=== PATIENT | female | born 1970 | race African-American/Black ===

== ENCOUNTER 2022-09-28 03:20 | Emergency (ER) | payer OTHER ==
[~2022-09-28] VITALS: Ht 172.7 cm; Wt 65.8 kg
--- NOTE | 2022-09-28 03:30 | NUR ---
DR LUNA HAS SEEN PT FOR EVAL.
--- NOTE | 2022-09-28 03:34 | NUR ---
BIBDAUGHTER C/O BACK PAIN X 1 DAY. HX CHRONIC BACK PAIN. PT A/OX4. TOLERATING R/A WELL WITH NO RESP DISTRESS. CONNECTED PT TO POX AND MONITOR. SAFETY MEASURES IN PLACE.
[2022-09-28] MEDS ORDERED: MORPHINE SULFATE INJ 4 MG/ML DISP.SYRIN ONE (03:48)
[2022-09-28] MEDS ORDERED: ONDANSETRON HCL/PF 4 MG/2 ML VIAL ONE ×2 (03:48→19:47)
[2022-09-28] MEDS ORDERED: ONDANSETRON 4 MG TAB.RAPDIS SL ONE (04:00)
[2022-09-28] MEDS ORDERED: MORPHINE SULFATE INJ 2 MG/ML DISP.SYRIN IM ONE (04:00)
[2022-09-28] MEDS ORDERED: ONDANSETRON HCL/PF - ER 4 MG/2 ML VIAL IV ONE ×3 (04:00→20:00)
--- NOTE | 2022-09-28 04:00 | NUR ---
RAC #18G S/L BLOOD COLLECTED AND SENT TO LAB
--- NOTE | 2022-09-28 04:05 | NUR ---
EMT AT PT'S BEDSIDE FOR EKG
[2022-09-28 04:07] LABS: BASOPHILS # (AUTO) 0.1 K/uL (0.0-0.2); EOSINOPHILS % (AUTO) 10.2 % (0.0-6.0); HEMATOCRIT 39 % (33-45); HEMOGLOBIN 12.7 g/dL (11.5-14.8); LYMPHOCYTES # (AUTO) 1.9 K/uL (0.8-4.8); LYMPHOCYTES % (AUTO) 24.8 % (20.0-44.0); MEAN CORPUSCULAR HGB CONC 33 g/dl (31.0-36.0); MEAN CORPUSCULAR VOLUME 104 fL (82-100); MONOCYTES # (AUTO) 0.9 K/uL (0.1-1.30); PLATELET COUNT (AUTO) 240 K/uL (150-450); RED BLOOD CELL COUNT(AUTO) 3.72 MIL/uL (4.0-5.2); WHITE BLOOD COUNT (AUTO) 7.7 K/uL (4.3-11.0)
[2022-09-28] MEDS ORDERED: CT SWABBABLE VALVE TRANS SET 1 EA INFUS.SET MC ONE (04:09)
[2022-09-28] MEDS ORDERED: IV NS 0.9% 250 ML IV ONE (04:09)
[2022-09-28] MEDS ORDERED: IOHEXOL-350 100 ML VIAL IV ONE (04:09)
[2022-09-28 04:13] LABS: CALCIUM, SERUM 8.8 mg/dL (8.5-10.1); CARBON DIOXIDE 29 mmol/L (21-32); CHLORIDE 102 mmol/L (98-107); CREATININE 0.7 mg/dL (0.6-1.3); GLUCOSE 114 mg/dL (74-106); POTASSIUM 3.3 mmol/L (3.5-5.1); SODIUM SERUM 138 mmol/L (136-145); UREA NITROGEN, BLOOD 6 mg/dL (7-18)
--- NOTE | 2022-09-28 04:15 | NUR ---
OFFERED PT URINE CUP; NOT ABLE TO URINATE AT THIS TIME. WILL TRY AGAIN LATER.
--- NOTE | 2022-09-28 04:17 | NUR ---
PT TAKEN TO CT [facility]IA [facility]
[2022-09-28 04:19] LABS: ALANINE AMINOTRANSFERASE 71 U/L (12-78); ALKALINE PHOSPHATASE 84 U/L (46-116); ASPARTATE AMINOTRANSFERASE 84 U/L (15-37); BILIRUBIN,DIRECT 0.2 mg/dL (0.0-0.2); BILIRUBIN,TOTAL 0.5 mg/dL (0.2-1.0); LIPASE 203 U/L (73-393); TOTAL PROTEIN, SERUM 7.9 g/dL (6.4-8.2)
[2022-09-28] MEDS ORDERED: MORPHINE SULFATE INJ 2 MG/ML DISP.SYRIN IV ONE ×2 (04:30→20:00)
--- NOTE | 2022-09-28 04:30 | NUR ---
PT RETURNED TO ER BED [address] [facility]
--- NOTE | 2022-09-28 04:34 | NUR ---
OFFERED PT BED SAEED OR W/C ASSISTANCE TO RESTROOM; PT REFUSED AT THIS TIME.
[2022-09-28] MEDS ORDERED: HYDROMORPHONE 1 MG/1 ML DISP.SYRIN ONE ×3 (05:35→12:42)
[2022-09-28] MEDS ORDERED: HYDROMORPHONE 1 MG/1 ML DISP.SYRIN IV ONE ×3 (06:00→12:30)
--- NOTE | 2022-09-28 06:01 | NUR ---
COVID SWAB DONE, SENT TO LAB
--- NOTE | 2022-09-28 06:02 | NUR ---
FOLLOWED UP ADMITTING FOR ADMISSION. THEY ARE WAITING FOR RESPONSE FROM [facility].
--- NOTE | 2022-09-28 06:11 | NUR ---
CLINICAL REPORT GIVEN TO SAMANTHA WILSON CM
--- NOTE | 2022-09-28 06:12 | NUR ---
PER SAMANTHA WILSON CM PT HAS VERBAL AUTH TO BE ADMITTED [facility]
[2022-09-28 06:13] LABS: BILIRUBIN,URINE NEGATIVE (NEGATIVE); COLOR,URINE YELLOW (YELLOW); LEUKOCYTE ESTERASE ,URINE NEGATIVE (NEGATIVE); NITRITE, URINE NEGATIVE (NEGATIVE); PROTEIN,URINE NEGATIVE (NEGATIVE); UGLUCOSE NEGATIVE (NEGATIVE); UROBILINOGEN,URINE 0.2 EU/dL (0.2)
--- NOTE | 2022-09-28 06:20 | NUR ---
Lola fernandez in [facility] - 09/28/22 at 0621 by [employer] AT PT'S BEDSIDE
--- NOTE | 2022-09-28 08:22 | NUR ---
CALLED DR. KING [facility] [address]. DR. KING SPEAKING WITH DR. PIEDRA.
--- NOTE | 2022-09-28 08:31 | NUR ---
CALLED [facility] [phone] NO CAPACITY AT THIS TIME PER [place].
--- NOTE | 2022-09-28 08:47 | NUR ---
CALLED [facility] [phone] [place] REQUESTING CLINICALS FAXED TO [phone]
--- NOTE | 2022-09-28 10:04 | NUR ---
DR. THOMPSON FROM [facility] SPEAKING WITH DR. PIEDRA.
--- NOTE | 2022-09-28 10:17 | NUR ---
[facility] [phone] [place] REQUESTING CLINICALS FAXED TO [phone]
--- NOTE | 2022-09-28 10:43 | NUR ---
CALLED [facility] TRANSFER [phone] [facility] DOES NOT OFFER.
--- NOTE | 2022-09-28 10:44 | NUR ---
CALLED [facility] [phone] NO BEDS [facility] [place].
--- NOTE | 2022-09-28 10:49 | NUR ---
DR. ARNOLD FROM [facility] SPEAKING WITH DR. PIEDRA.
--- NOTE | 2022-09-28 11:00 | NUR ---
CALLED [phone] ASKE RADIOLOGIST TO CALL BACK FOR CLARIFICATION OF READ.
--- NOTE | 2022-09-28 11:10 | NUR ---
[facility] CALLED. PT ACCEPTED TO IN-PATIENT UNDER DR. Cynthia ARNOLD PLEASE CALL [phone] X [phone] FOR BED ASSIGNMENT AFTER 1200. PT GOING TO [address] [place] [id number].
--- NOTE | 2022-09-28 12:50 | NUR ---
CALLED [facility] BED PLACEMENT [phone] X 2 AWAITING DISCHARGES WILL CHECK IN A FEW HOURS PER EMMA
--- NOTE | 2022-09-28 19:10 | NUR ---
CALLED [facility] BED PLACEMENT [phone] X 2 WILL HAVE A BED AFTER THE CHANGE OF SHIFT PER EMMA AND WILL CALL US BACK.
--- NOTE | 2022-09-28 19:33 | NUR ---
REPORT RECEIVED FROM KAYODE MCGRAW. PATIENT IS FOR ADMISSION D/T [facility]. PATIENT IS FOR POSSIBLE TRANSFER TO [facility] ONCE BED AVAILABLE. PATIENT IS AAOX4. ABLE TO MAKE NEEDS KNOWN.
--- NOTE | 2022-09-28 19:44 | NUR ---
PATIENT IS CRYING. IN PAIN AT LUMBAR AREA, WITH SCALE OF 10/10. MD MADE AWARE
[2022-09-28] MEDS ORDERED: MORPHINE SULFATE INJ 2 MG/ML DISP.SYRIN ONE (19:47)
--- NOTE | 2022-09-28 20:16 | NUR ---
ATTACHED TO MONITOR.
--- NOTE | 2022-09-28 21:17 | NUR ---
[id number]
--- NOTE | 2022-09-28 21:25 | NUR ---
SPOKE WITH MILENA AT [facility], PT IS GOING TO [facility] VIA [facility] ETA 45-60 MINUTES
--- NOTE | 2022-09-28 21:31 | NUR ---
RECEIVED A CALL FROM MILENA OF [facility] TRAN[facility]ER [facility]. SHE IS ALSO INCHARGE OF SURGERY BED CONTROL. [phone]. PATIENT WILL BE TRANSFERRING TO [facility] AT 6 [address] RM 6357. REPORT GIVEN TO KAYODE MORA TEL # [phone]. ETA OF TRANSPORTATION IS [phone]. KAYODE MORA MADE AWARE.
--- NOTE | 2022-09-28 21:31 | NUR ---
ACCEPTING MD IS DR ALIVIA ARNOLD
--- NOTE | 2022-09-28 22:21 | NUR ---
REPORT GIVEN TO AMEENA EMT [facility] [id number]
[2022-09-28 22:27] VITALS: BP 85/95
--- NOTE | 2022-09-28 22:50 | NUR ---
PT WAS TRANSFERREED TO [facility] IN STABLE CONDITION
--- NOTE | 2022-09-29 11:19 | NUR ---
SILVESTRE FROM [facility] CALLED REQUESTING MD NOTES FAXED TO [phone]
== END 2022-09-28 23:01 ==
LOC: ER 03:24
DX: M54.50 Low back pain, unspecified (principal); R19.00 Intra-abdominal and pelvic swelling, mass and lump, unspecified site; I71.20 Thoracic aortic aneurysm, without rupture, unspecified; E04.1 Nontoxic single thyroid nodule; G89.29 Other chronic pain; Z20.822 Contact with and (suspected) exposure to COVID-19
CPT/HCPCS: 99285; 75635; 96374; 76856; 71045; 96375; 87426; 93005; 71275; 85025; 80048; 83690; 80076; 81003; 36415; 84484; 85730; 87081; 96376; J2270 ×2; J2405 ×5; J7030; J7050; Q9967; J1170 ×3; C9803

== ENCOUNTER 2023-04-10 01:05 | Emergency (ER) | payer OTHER ==
[~2023-04-10] VITALS: Ht 175.3 cm; Wt 52.6 kg
[2023-04-10] MEDS ORDERED: ONDANSETRON HCL/PF 4 MG/2 ML VIAL ONE ×2 (01:38→03:56)
[2023-04-10] MEDS ORDERED: ONDANSETRON HCL/PF 4 MG/2 ML VIAL IVP ONE (02:00)
[2023-04-10] MEDS ORDERED: IV NS 0.9% 1,000 ML BAG IV ONE (02:00)
[2023-04-10 02:03] LABS: BASOPHILS # (AUTO) 0.2 K/uL (0.0-0.2); BASOPHILS % (AUTO) 2.6 % (0.0-2.0); EOSINOPHILS # (AUTO) 0.5 K/uL (0.0-0.7); EOSINOPHILS % (AUTO) 7.8 % (0.0-6.0); HEMATOCRIT 36 % (33-45); HEMOGLOBIN 11.8 g/dL (11.5-14.8); LYMPHOCYTES # (AUTO) 1.8 K/uL (0.8-4.8); LYMPHOCYTES % (AUTO) 29.8 % (20.0-44.0); MEAN CORPUSCULAR HEMOGLOBIN 31 PG (26.0-33.0); MEAN CORPUSCULAR HGB CONC 33 g/dl (31.0-36.0); MEAN CORPUSCULAR VOLUME 95 fL (82-100); MONOCYTES # (AUTO) 0.5 K/uL (0.1-1.30); MONOCYTES % (AUTO) 8.4 % (2.0-12.0); NEUTROPHILS # (AUTO) 3.1 K/uL (1.8-8.9); NEUTROPHILS % (AUTO) 51.4 % (43.0-81.0); PLATELET COUNT (AUTO) 269 K/uL (150-450); RED BLOOD CELL COUNT(AUTO) 3.81 MIL/uL (4.0-5.2); RED CELL DISTRIBUTION WIDTH 18.8 % (11.5-15.0)
[2023-04-10 02:14] LABS: CALCIUM, SERUM 8.6 mg/dL (8.5-10.1); CARBON DIOXIDE 26 mmol/L (21-32); CHLORIDE 101 mmol/L (98-107); CREATININE 0.8 mg/dL (0.6-1.3); GLUCOSE 82 mg/dL (74-106); SODIUM SERUM 134 mmol/L (136-145); UREA NITROGEN, BLOOD 13 mg/dL (7-18)
[2023-04-10 02:15] LABS: POTASSIUM 2.7 mmol/L (3.5-5.1)
[2023-04-10 02:16] LABS: INR 1.19 (0.91-1.10); PARTIAL THROMBOPLASTIN TIME 29.3 SEC (24.3-34.3); PROTHROMBIN TIME 12.4 SECS (9.2-11.1)
[2023-04-10 02:25] LABS: ALKALINE PHOSPHATASE 87 U/L (46-116); BILIRUBIN,DIRECT 0.2 mg/dL (0.0-0.2); BILIRUBIN,TOTAL 0.6 mg/dL (0.2-1.0)
[2023-04-10 02:26] LABS: ALANINE AMINOTRANSFERASE 88 U/L (12-78); ALBUMIN 2.9 g/dL (3.4-5.0); ASPARTATE AMINOTRANSFERASE 97 U/L (15-37); LIPASE 340 U/L (73-393); TOTAL PROTEIN, SERUM 8.3 g/dL (6.4-8.2)
[2023-04-10] MEDS ORDERED: POTASSIUM CL. PREMIX PERIPHER. 50 ML ONE ×4 (02:38→06:05)
[2023-04-10] MEDS: POTASSIUM CL. PREMIX PERIPHER. 50 ML IV SCH ×4 (02:40→06:20)
[2023-04-10] MEDS ORDERED: IOHEXOL-350 100 ML VIAL IV ONE (03:03)
[2023-04-10] MEDS ORDERED: CT SWABBABLE VALVE TRANS SET 1 EA INFUS.SET MC ONE (03:03)
[2023-04-10] MEDS ORDERED: IV NS 0.9% 250 ML IV ONE (03:03)
[2023-04-10] MEDS ORDERED: MORPHINE SULFATE INJ 4 MG/ML DISP.SYRIN ONE (03:55)
[2023-04-10] MEDS ORDERED: MORPHINE SULFATE INJ 2 MG/ML DISP.SYRIN IV ONE (04:00)
[2023-04-10] MEDS ORDERED: ONDANSETRON HCL/PF - ER 4 MG/2 ML VIAL IV ONE (04:00)
[2023-04-10] MEDS ORDERED: Magnesium 1GM/D5W 100ML PREMIX 100 ML IV ONE ×2 (04:51→05:57)
[2023-04-10] MEDS: Magnesium 1GM/D5W 100ML PREMIX 100 ML IV SCH ×2 (05:00→06:00)
[2023-04-10 12:05] VITALS: TEMP 96.8
[2023-04-10 12:35] VITALS: BP 132/93; O2SAT 100
== END 2023-04-10 12:57 | disposition short-term general hospital (02) ==
LOC: ER 01:08
DX: E87.6 Hypokalemia (principal); E83.42 Hypomagnesemia; I71.20 Thoracic aortic aneurysm, without rupture, unspecified; R10.84 Generalized abdominal pain; G89.29 Other chronic pain
CPT/HCPCS: 99285; 74174; 96365; 71275; 96366 ×2; 96375; 96361; 96368; 93005; 85025; 80048; 83690; 80076; 83735; 36415; 84484; 85730; 96376; J2270; J2405 ×3; J7030; J7050; J7040; J3480 ×4; J3475 ×2; Q9967; A4223 ×2

== ENCOUNTER 2023-11-17 21:05 | Inpatient (IN) | payer OTHER ==
[~2023-11-17] VITALS: Ht 175.3 cm; Wt 50.8 kg
[2023-11-17 21:54] LABS: BASOPHILS % (AUTO) 0.4 % (0.0-2.0); EOSINOPHILS # (AUTO) 0.1 K/uL (0.0-0.7); EOSINOPHILS % (AUTO) 0.4 % (0.0-6.0); HEMATOCRIT 33 % (33-45); HEMOGLOBIN 11.1 g/dL (11.5-14.8); LYMPHOCYTES # (AUTO) 1.6 K/uL (0.8-4.8); LYMPHOCYTES % (AUTO) 11.5 % (20.0-44.0); MEAN CORPUSCULAR HEMOGLOBIN 33 PG (26.0-33.0); MEAN CORPUSCULAR HGB CONC 33 g/dl (31.0-36.0); MEAN CORPUSCULAR VOLUME 98 fL (82-100); MONOCYTES # (AUTO) 1.5 K/uL (0.1-1.30); MONOCYTES % (AUTO) 10.6 % (2.0-12.0); NEUTROPHILS # (AUTO) 10.9 K/uL (1.8-8.9); NEUTROPHILS % (AUTO) 77.1 % (43.0-81.0); PLATELET COUNT (AUTO) 232 K/uL (150-450); RED CELL DISTRIBUTION WIDTH 15.2 % (11.5-15.0); WHITE BLOOD COUNT (AUTO) 14.1 K/uL (4.3-11.0)
[2023-11-17] MEDS ORDERED: KETOROLAC TROMETHAMINE 15 MG/ML VIAL ONE (21:58)
[2023-11-17] MEDS ORDERED: ACETAMINOPHEN ES 500 MG TABLET ONE (21:58)
[2023-11-17 22:08] LABS: CALCIUM, SERUM 8.2 mg/dL (8.5-10.1); CARBON DIOXIDE 27 mmol/L (21-32); CHLORIDE 101 mmol/L (98-107); CREATININE 0.9 mg/dL (0.6-1.3); GLUCOSE 89 mg/dL (74-106); SODIUM SERUM 136 mmol/L (136-145); UREA NITROGEN, BLOOD 14 mg/dL (7-18)
[2023-11-17 22:12] LABS: POTASSIUM 2.5 mmol/L (3.5-5.1)
[2023-11-17] MEDS: KETOROLAC TROMETHAMINE 15 MG/ML VIAL IV ONE (22:15)
[2023-11-17] MEDS: IV NS 0.9% 1,000 ML BAG IV ONE (22:15)
[2023-11-17] MEDS: ACETAMINOPHEN ES 500 MG TABLET PO ONE (22:15)
[2023-11-17 22:30] LABS: INR 1.12 (0.91-1.10); PARTIAL THROMBOPLASTIN TIME 30.7 SEC (24.3-34.3); PROTHROMBIN TIME 11.8 SECS (9.2-11.1)
[2023-11-17] MEDS ORDERED: POTASSIUM CHLORIDE 10 MEQ TABLET.SA ONE (22:38)
[2023-11-17] MEDS ORDERED: POTASSIUM CL. PREMIX PERIPHER. 50 ML ONE ×2 (22:38→23:30)
[2023-11-17] MEDS: POTASSIUM CHLORIDE 20 MEQ TAB.PRT.SR PO ONE (22:44)
[2023-11-17] MEDS: POTASSIUM CL. PREMIX PERIPHER. 50 ML IV SCH (22:44)
[2023-11-18] VITALS (7 sets, daily range): BP systolic 111–119; BP diastolic 80–90; TEMP 97.5–98.2; O2SAT 94–97
[2023-11-18] MEDS ORDERED: POTASSIUM CL. PREMIX PERIPHER. 100 ML ONE (00:04)
[2023-11-18] MEDS ORDERED: MAGNESIUM HYDROXIDE 30 ML UDC PO PRN (02:30)
[2023-11-18] MEDS ORDERED: MAG HYDROX/AL HYDROX/SIMETH 30 ML UDC PO PRN (02:30)
[2023-11-18] MEDS ORDERED: Z GUARD REMEDY 4 OZ OINT TP PRN (02:30)
[2023-11-18] MEDS ORDERED: ONDANSETRON HCL/PF 4 MG/2 ML VIAL IVP PRN (02:30)
[2023-11-18] MEDS ORDERED: IV PREMIX NS +20MEQ KCL 1 L IV ONE (05:08)
[2023-11-18] MEDS: Potassium Chloride 20 MEQ in IV NS 0.9% 1,000 ML IV SCH (05:12)
[2023-11-18 07:04] LABS: APPEARANCE,URINE CLEAR (CLEAR); BILIRUBIN,URINE NEGATIVE (NEGATIVE); BLOOD, URINE NEGATIVE Ery/uL (NEGATIVE); COLOR,URINE YELLOW (YELLOW); KETONES,URINE NEGATIVE (NEGATIVE); LEUKOCYTE ESTERASE ,URINE 1+ (NEGATIVE); NITRITE, URINE NEGATIVE (NEGATIVE); PH,URINE 6.5 (5.0-8.0); PROTEIN,URINE NEGATIVE (NEGATIVE); UGLUCOSE NEGATIVE (NEGATIVE)
[2023-11-18 07:31] LABS: BASOPHILS # (AUTO) 0.1 K/uL (0.0-0.2); BASOPHILS % (AUTO) 0.4 % (0.0-2.0); EOSINOPHILS # (AUTO) 0.1 K/uL (0.0-0.7); EOSINOPHILS % (AUTO) 0.8 % (0.0-6.0); HEMATOCRIT 35 % (33-45); HEMOGLOBIN 11.1 g/dL (11.5-14.8); LYMPHOCYTES # (AUTO) 3.4 K/uL (0.8-4.8); LYMPHOCYTES % (AUTO) 24.1 % (20.0-44.0); MEAN CORPUSCULAR HEMOGLOBIN 32 PG (26.0-33.0); MEAN CORPUSCULAR HGB CONC 32 g/dl (31.0-36.0); MEAN CORPUSCULAR VOLUME 99 fL (82-100); MONOCYTES # (AUTO) 0.7 K/uL (0.1-1.30); MONOCYTES % (AUTO) 5.2 % (2.0-12.0); NEUTROPHILS # (AUTO) 9.7 K/uL (1.8-8.9); NEUTROPHILS % (AUTO) 69.5 % (43.0-81.0); PLATELET COUNT (AUTO) 220 K/uL (150-450); RED CELL DISTRIBUTION WIDTH 15.1 % (11.5-15.0)
[2023-11-18] MEDS: PANTOPRAZOLE 40 MG TABLET.DR PO SCH (08:23)
[2023-11-18] MEDS: ACETAMINOPHEN 325 MG TABLET PO PRN (08:23)
[2023-11-18] MEDS: DOCUSATE SODIUM 100 MG CAPSULE PO SCH (08:23)
[2023-11-18 08:36] LABS: ADD URINE CULTURE YES; BACTERIA,URINE 1+ /HPF (None Seen); RBC,URINE 0-2 /HPF (0-2); SQUAMOUS EPITHELIAL CELL,UR 0-2 /HPF (None Seen)
[2023-11-18 08:59] LABS: CALCIUM, SERUM 8.1 mg/dL (8.5-10.1); CREATININE 0.9 mg/dL (0.6-1.3); MAGNESIUM 1.5 mg/dL (1.8-2.4); PHOSPHORUS 2.1 mg/dL (2.5-4.9); POTASSIUM 3.3 mmol/L (3.5-5.1)
[2023-11-18 09:09] LABS: THYROID STIMULATING HORMONE 0.838 uIU/mL (0.358-3.74)
[2023-11-18] MEDS: HYDROCODONE/APAP 5/325MG TABLET PO PRN (13:05)
[2023-11-18] MEDS: MAGNESIUM OXIDE 400 MG TABLET PO ONE (13:05)
[2023-11-18] MEDS: POTASSIUM PHOSPHATE MM 7.5 MMOL in IV NS 0.9% 100 ML IV SCH (13:38)
[2023-11-18] MEDS: CEFTRIAXONE 1 G in IV D5W 50 ML IV SCH (13:40)
[2023-11-18] MEDS ORDERED: IBUPROFEN 800 MG TABLET PO PRN (17:00)
[2023-11-18] MEDS: IBUPROFEN 400 MG TABLET PO PRN (17:05)
[2023-11-19] VITALS (7 sets, daily range): BP systolic 108–128; BP diastolic 78–92; TEMP 97.5–99.5; O2SAT 95–98
[2023-11-19 07:25] LABS: CALCIUM, SERUM 7.7 mg/dL (8.5-10.1); CREATININE 0.7 mg/dL (0.6-1.3); MAGNESIUM 1.4 mg/dL (1.8-2.4); PHOSPHORUS 2.8 mg/dL (2.5-4.9); POTASSIUM 3.4 mmol/L (3.5-5.1)
[2023-11-19 07:47] LABS: BASOPHILS # (AUTO) 0.1 K/uL (0.0-0.2); BASOPHILS % (AUTO) 0.6 % (0.0-2.0); EOSINOPHILS # (AUTO) 0.3 K/uL (0.0-0.7); EOSINOPHILS % (AUTO) 2.5 % (0.0-6.0); HEMATOCRIT 34 % (33-45); HEMOGLOBIN 11.2 g/dL (11.5-14.8); LYMPHOCYTES # (AUTO) 2.5 K/uL (0.8-4.8); LYMPHOCYTES % (AUTO) 21.1 % (20.0-44.0); MEAN CORPUSCULAR HEMOGLOBIN 33 PG (26.0-33.0); MEAN CORPUSCULAR HGB CONC 33 g/dl (31.0-36.0); MEAN CORPUSCULAR VOLUME 98 fL (82-100); MONOCYTES # (AUTO) 1.4 K/uL (0.1-1.30); MONOCYTES % (AUTO) 11.7 % (2.0-12.0); NEUTROPHILS # (AUTO) 7.5 K/uL (1.8-8.9); NEUTROPHILS % (AUTO) 64.1 % (43.0-81.0); PLATELET COUNT (AUTO) 246 K/uL (150-450); RED BLOOD CELL COUNT(AUTO) 3.46 MIL/uL (4.0-5.2); WHITE BLOOD COUNT (AUTO) 11.7 K/uL (4.3-11.0)
[2023-11-19] MEDS: MAGNESIUM OXIDE 400 MG TABLET PO ONE (10:26)
[2023-11-19] MEDS: ENSURE ENLIVE 237 ML LIQUID (VANILLA) PO SCH (17:59)
[2023-11-19] MEDS ORDERED: ZOLPIDEM TARTRATE 5 MG TABLET PO PRN (22:30)
[2023-11-20 01:04] VITALS: O2SAT 98
[2023-11-20 01:09] VITALS: TEMP 98.6
[2023-11-20 07:30] LABS: BASOPHILS # (AUTO) 0.1 K/uL (0.0-0.2); BASOPHILS % (AUTO) 0.7 % (0.0-2.0); EOSINOPHILS # (AUTO) 0.3 K/uL (0.0-0.7); EOSINOPHILS % (AUTO) 2.8 % (0.0-6.0); HEMATOCRIT 33 % (33-45); LYMPHOCYTES # (AUTO) 3.5 K/uL (0.8-4.8); MEAN CORPUSCULAR HEMOGLOBIN 32 PG (26.0-33.0); MEAN CORPUSCULAR HGB CONC 33 g/dl (31.0-36.0); MEAN CORPUSCULAR VOLUME 97 fL (82-100); MONOCYTES # (AUTO) 1.2 K/uL (0.1-1.30); NEUTROPHILS # (AUTO) 6.9 K/uL (1.8-8.9); NEUTROPHILS % (AUTO) 57.5 % (43.0-81.0); PLATELET COUNT (AUTO) 285 K/uL (150-450); RED CELL DISTRIBUTION WIDTH 14.8 % (11.5-15.0)
[2023-11-20 08:32] LABS: CALCIUM, SERUM 7.7 mg/dL (8.5-10.1); CREATININE 0.7 mg/dL (0.6-1.3); MAGNESIUM 1.6 mg/dL (1.8-2.4); PHOSPHORUS 2.9 mg/dL (2.5-4.9); POTASSIUM 3.7 mmol/L (3.5-5.1)
== END 2023-11-20 13:15 | disposition left against medical advice (07) | DRG 425 ==
LOC: ER 21:06 → TELE 23:16 → MED 11-19 23:00
PROVIDERS: ADMIT Nurse Practitioner Family; ATTEND Nurse Practitioner Family
DX: E87.6 Hypokalemia (principal); N12 Tubulo-interstitial nephritis, not specified as acute or chronic; D64.9 Anemia, unspecified; I10 Essential (primary) hypertension; R09.02 Hypoxemia; Z90.710 Acquired absence of both cervix and uterus; Z20.822 Contact with and (suspected) exposure to COVID-19; B96.89 Other specified bacterial agents as the cause of diseases classified elsewhere
CPT/HCPCS: 36415; 70450-TC; 71045-TC; 80048-TC; 81001; 83605-TC; 83735-TC; 84100-TC; 84443-TC; 84484-TC; 85025-TC; 85730-TC; 87040-TC; 87086-TC; 94760-TC; 94799-TC; A4223; G0378; J0696; J1885; J3480; J3490; J7030; J7050; J7060

== ENCOUNTER → 2024-06-20 | Emergency (ER) | payer OTHER ==
[~2024-06-20] VITALS: Ht 167.6 cm; Wt 53.5 kg
[~2024-06-20] MED LIST: LIDOCAINE 1% INJ 50 ML MDV IJ ONE; SULF1TAB48 PO
[2024-06-20 19:39] VITALS: BP 119/67; TEMP 98.3; O2SAT 96
== END | disposition home or self-care (01) ==
LOC: ER 18:23
DX: L02.31 Cutaneous abscess of buttock (principal); M41.9 Scoliosis, unspecified; Z90.710 Acquired absence of both cervix and uterus; Z86.79 Personal history of other diseases of the circulatory system; Z87.39 Personal history of other diseases of the musculoskeletal system and connective tissue
CPT/HCPCS: 99283; 10060; J3490; A6403; A6407